=== PATIENT | female | born 1950 | race Caucasian/White ===

== ENCOUNTER 2021-05-07 09:49 | Outpatient (CLI) | payer MEDICARE, OTHER, SELFPAY ==
--- NOTE | 2021-05-07 10:01 | XR_ITS ---
WS: [id number] Right knee, 3 views, 05/07/2021 Clinical Data: R KNEE PAIN Comparison: None. Findings: No fractures or dislocations are seen. The joint spaces are normal. The patella is intact. The soft t issues are unremarkable. XR/XR knee RT 3V* [id number] Impression: Negative right knee. Kellgren-Cas Classification: grade 0 (none): definite absence of x-ray yaneli nges of osteoarthritis
== END 2021-05-07 09:50 | disposition home or self-care (01) ==
LOC: RAD 09:51
PROVIDERS: Family Provider Family Medicine; PCP Family Medicine; Visit Provider Family Medicine
DX: M25.561 Pain in right knee (principal)
CPT/HCPCS: 73562

== ENCOUNTER → 2021-06-12 10:32 | Outpatient (BNVA) | payer MEDICARE, OTHER, SELFPAY | PROVIDERS: Family Provider Family Medicine; PCP Family Medicine; Referring Provider Family Medicine; Visit Provider Specialist | DX: S83.289A Other tear of lateral meniscus, current injury, unspecified knee, initial encounter (principal); X58.XXXA Exposure to other specified factors, initial encounter; Z87.891 Personal history of nicotine dependence | CPT/HCPCS: 73560; 73565; 99203; 99204 ==

== ENCOUNTER → 2021-07-08 09:49 | Outpatient (BNVA) | payer MEDICARE, OTHER, SELFPAY | PROVIDERS: Family Provider Family Medicine; PCP Family Medicine; Visit Provider Nurse Practitioner Family | DX: R07.89 Other chest pain (principal); I10 Essential (primary) hypertension; Z87.891 Personal history of nicotine dependence | CPT/HCPCS: 99214 ==

== ENCOUNTER 2021-07-24 09:12 | Outpatient (CLI) | payer MEDICARE, OTHER, SELFPAY ==
--- NOTE | 2021-07-24 09:26 | MR_ITS ---
WS: [id number] MRI RIGHT KNEE NONCONTRAST TECHNIQUE: Axial PD, coronal PD fat sat, coronal PD, sagittal PD, and sagittal PD fat-sat images obta ined. CLINICAL INFORMATION: meniscus tear COMPARISON: Radiograph June 12, 2021 FINDINGS: Distal quadriceps and patella tendons are intact. Slightly hypertrophic patella. Normal ACL and PCL. Chronic thinning of the medial and lateral meniscus. Horizontal tear involving the anterior horn late ral meniscus extending to the free edge of the meniscus. Chronic appearing intrasubstance signal abno rmality involving the medial meniscus. Mild peripheral extrusion of the medial meniscus. Mild chondromalacia involving the medial and lateral joint compartments. Small amount of subchondral edema involving the medial tibial plateau. Normal medial and lateral patellar retinaculum. No signifi cant chondromalacia patella. Superficial subcutaneous superficial varicosities posterior lower thigh and upper leg. High-grade complete tear involving the distal lateral collateral ligament complex involving the anter ior ligament of the fibular head and distal biceps femoris. Soft tissue edema involving the extensor digitorum longus muscle and tibialis anterior. Fluid extending deep to the fibular collateral ligamen t. Soft tissue edema extending into the subcutaneous soft tissues. Small amount of fluid and edema ex tending into the popliteus muscle posterior to the tibia. MR/MR knee RT wo con* [id number] IMPRESSION: 1. Normal ACL and PCL. 2. Acute appearing horizontal tear involving the anterior horn lateral meniscu s extending to the articular surface and free edge of the meniscus. 3. High-grade complete tear of the distal fibular collateral ligament complex and biceps femoris tendon involving the anterior ligament at the fibular head. Associated edema and fluid in this area. 4. Medial collateral ligament is intact. 5. Superficial subcutaneous varicosities posterior lower thigh and upper leg. Outbridge grading: grade III: partial-thickness cartilage loss with focal ulcer ation
== END 2021-07-24 09:13 | disposition home or self-care (01) ==
LOC: RAD 09:20
PROVIDERS: PCP Family Medicine; Visit Provider Specialist
DX: S83.281A Other tear of lateral meniscus, current injury, right knee, initial encounter (principal); X58.XXXA Exposure to other specified factors, initial encounter
CPT/HCPCS: 73721

== ENCOUNTER → 2021-08-28 12:47 | Outpatient (BNVA) | payer MEDICARE, OTHER, SELFPAY | PROVIDERS: PCP Family Medicine; Visit Provider Specialist | DX: S83.421A Sprain of lateral collateral ligament of right knee, initial encounter (principal); Y93.42 Activity, yoga | CPT/HCPCS: 99213 ==

== ENCOUNTER 2021-08-30 08:05 | Outpatient (CLI) | payer MEDICARE, OTHER, SELFPAY ==
[2021-08-30 08:50] VITALS: BMI 28.6
--- NOTE | 2021-08-30 08:54 | ECG_ITS ---
[facility] Test Date: 2021-08-30 Pat Name: Kelly Gates Department: Room: Gender: Female Car Hostler: Sharon Reece : 1950 Requested By: Cat Nazario Order Number: [id number] Andre MD: Shawn Gaxiola M.D. Interpretive Statements NAME OF STUDY: EXERCISE SESTAMIBI STRESS TEST INDICATION: [Dyspnea, ] EXERCISE DATA: The patient was exercised by Nawaf protocol. Baseline heart rate was 64 beats per minute. Baseline blood pressure was 140/77 millimeters of mercury. Target heart rate was 126 beats per minute. Maximum heart rate achieved was 137 which was 106% of the target heart rate. Maximum blood pressure was 177/77 millimeters of mercury. Total exercise time was 3 minutes. Maximum METs achieved was 4.6.The reason for ending the test was completion of protocol and maximal effort achieved. The patient complained of shortness of breath during the stress test, which then resolved at the end of the test. ELECTROCARDIOGRAM: BASELINE: Showed sinus rhythm, normal axis, no significant ST-T changes at the baseline noted. [] EXERCISE: At the peak exercise level, [] No significant ST-T changes suggestive of ischemia noted. [] RECOVERY: During the recovery period, heart rate dropped appropriately. No significant ST-T changes in the recovery suggestive of ischemia noted. [] CONCLUSION: 1. Exercise capacity poor 2. Heart rate response was appropriate 3. Blood pressure response was appropriate 4. Symptoms not suggestive of ischemia. 5. Electrocardiogram portion of the stress test was not suggestive of ischemia. 6. Nuclear scan will be documented separately. Electronically Signed On 09-07-2021 13:02:11 CDT by Shawn Gaxiola M.D. [id number]
--- NOTE | 2021-08-30 08:55 | NMCV_ITS ---
NM erica perf SPECT r/s* [id number] Kelly Gates Age: 71 Gender: F : 1950 Exam Date: 08/30/2021 09:36 Ordering Phys: Cat Nazario Technologist: DELMAR George Exam Location: [facility] Indications: CHEST PAIN STRESS TEST Please see separate stress test report in [facility] for full findings IMAGE PROTOCOL Rest/Stress 1 Exercise Day Radiopharmaceutical Dose (mCi) Administration Site Administered by Rest: Tc-99m 10.7 IV DELMAR Maciel Sestamibi Stress:Tc-99m 32.9 IV DELMAR George Sestamimanjinder Rest: 08/30/2021 60 Discovery 630 Stress: 08/30/2021 30 Discovery 630 Radiopharmaceutical was injected at 87 % maximum heart rate. Images obtained in supine and prone position. SPECT RESULTS Technical Quality: Excellent Raw Data Analysis: Normal Image Corrections: No attenuation or motion correction applied Summed Stress Score: 1 Summed Rest Score: 0 Summed Difference Score: 1 PERFUSION FINDINGS SPECT images demonstrate homogeneous tracer distribution throughout the myocardium. FUNCTIONAL RESULTS (calculated via Gated SPECT) Stress Image LV EF (%): 83 Stress EDV (mL):83 TID: 1.23 Stress ESV (mL):14 FUNCTIONAL FINDINGS: There is normal left ventricular systolic function. IMPRESSIONS 1. Normal myocardial perfusion imaging with no evidence of ischemia. 2. LV systolic function is normal. Shawn Gaxiola MD (Electronically Signed) Final Date: 07 September 2021 13:01 S
[2021-08-30 10:27] VITALS: BP 155/69; PULSE 75
== END 2021-08-30 08:06 | disposition home or self-care (01) ==
LOC: CDL 08:07
PROVIDERS: PCP Family Medicine; Visit Provider Nurse Practitioner Family
DX: R07.9 Chest pain, unspecified (principal); R06.00 Dyspnea, unspecified
CPT/HCPCS: 78452; 93017; A9500

== ENCOUNTER → 2022-03-13 10:53 | Outpatient (BNVA) | payer MEDICARE, OTHER, SELFPAY | PROVIDERS: PCP Family Medicine; Visit Provider Family Medicine | DX: Z00.00 Encounter for general adult medical examination without abnormal findings (principal); I10 Essential (primary) hypertension; R60.0 Localized edema | CPT/HCPCS: 80053; 80061; 84443; 85025 ==